=== PATIENT | male | born 1950 | race Caucasian/White ===

== ENCOUNTER 2017-08-15 22:01 | Emergency (ER) | payer MEDICARE ==
[2017-08-15 22:02] VITALS: BMI 27.7
--- NOTE | 2017-08-16 00:53 | C.PDOC ---
History Of Present Illness Patient presents to the ER with a complaint of fever, cough and body aches for the past 36 hours. Patient is able to tolerate PO, denies nausea, vomiting, or diarrhea. Time Seen by Provider: 08/16/17 00:52 Chief Complaint (Nursing): Flu-like Symptoms History Per: Patient History/Exam Limitations: no limitations Onset/Duration Of Symptoms: Days Current Symptoms Are (Timing): Still Present Location Of Pain: Diffuse Myalgias Sick Contacts (Context): None Associated Symptoms: Fever, Cough, Myalgias. denies: Nausea, Vomiting, Diarrhea Ear Symptoms: Bilateral: None Severity: Mild Pain Scale Rating Of: 2 Recent travel outside of the [place]: No Past Medical History Reviewed: Historical Data, Nursing Documentation, Vital Signs Vital Signs: Last Vital Signs Temp 98.1 F 08/16/17 01:53 Pulse 70 08/16/17 01:53 Resp 20 08/16/17 01:53 BP 122/61 08/16/17 01:53 Pulse Ox 100 08/16/17 01:53 - Medical History PMH: HTN, Hypercholesterolemia, Hyperlipidemia - [facility] Procedures CORNEAL TRANSPLANT NOS (07/17/99) EXTRACAP LENS EXTRAC NEC (10/15/99) INSERT LENS AT CATAR EXT (10/15/99) Family History: States: No Known Family Hx - Social History Hx Alcohol Use: No Hx Substance Use: No - Immunization History Hx Tetanus Toxoid Vaccination: No Hx Influenza Vaccination: No Hx Pneumococcal Vaccination: No Review Of Systems Constitutional: Positive for: Fever. Negative for: Chills Respiratory: Positive for: Cough Gastrointestinal: Negative for: Nausea, Vomiting, Diarrhea Musculoskeletal: Positive for: Other (Body aches) Physical Exam - Physical Exam Appears: Non-toxic, No Acute Distress Skin: Warm, Dry Head: Normacephalic Ear(s): Bilateral: Normal Oral Mucosa: Moist Throat: No Erythema, No Exudate Chest: Symmetrical, No Tenderness Cardiovascular: Rhythm Regular Respiratory: No Rales, Rhonchi (Scattered), No Wheezing Gastrointestinal/Abdominal: Soft, No Tenderness Neurological/Psych: Oriented x3 ED Course And Treatment O2 Sat by Pulse Oximetry: 94 (room air) Pulse Ox Interpretation: Normal Progress Note: Tamiflu and zithromax administered. Disposition Counseled Patient/Family Regarding: Studies Performed, Diagnosis, Need For Followup, Rx Given - Disposition Referrals: Alexander Mejia MD [Primary Care Provider] - Disposition: HOME/ ROUTINE Disposition Time: 00:52 Condition: FAIR Additional Instructions: Please return if symptoms recur Prescriptions: Azithromycin [Zithromax Tri-Kuldip] 500 mg PO DAILY #3 tablet Benzonatate [Tessalon Perles] 100 mg PO TID PRN #15 sgl PRN Reason: Cough Oseltamivir Phosphate [Tamiflu] 75 mg PO BID #10 capsule Instructions: Upper Respiratory Infection (ED), Viral Syndrome (ED) Forms: [employer] (Amharic) Print Language: BRUNEIAN - Clinical Impression Clinical Impression: Viral syndrome, URI (upper respiratory infection) - Scribe Statement The provider has reviewed the documentation as recorded by the Scribe Marcus Aldrich All medical record entries made by the Scribe were at my direction and personally dictated by me. I have reviewed the chart and agree that the record accurately reflects my personal performance of the history, physical exam, medical decision making, and the department course for this patient. I have also personally directed, reviewed, and agree with the discharge instructions and disposition.
[2017-08-16 01:55] VITALS: BP 122/61; PULSE 70; RESP 20; TEMP 98.1
[2017-08-16 04:47] VITALS: O2SAT 94
== END 2017-08-16 01:53 | disposition home or self-care (01) ==
LOC: C.ER 22:01 → SUPCPDRO 22:01 → C.ER 08-16 01:53
DX: B34.9 Viral infection, unspecified (principal); J06.9 Acute upper respiratory infection, unspecified

== ENCOUNTER 2017-09-24 00:43 | Emergency (ER) | payer MEDICARE ==
[2017-09-24 00:43] VITALS: BMI 27.7
[2017-09-24 01:04] VITALS: TEMP 99.9
[2017-09-24] MEDS ORDERED: Sodium Chloride 0.9% 1,000 ML IV ONE (01:07)
--- NOTE | 2017-09-24 01:09 | C.PDOC ---
History Of Present Illness 66 y/o male PMHx of prostatic cancer, currently undergoing radiation therapy, presents to ED for complaints of abdominal pain that began this evening 8PM. Patient states pain does not radiate to back but radiates to the lower chest. Patient also expresses concern about blood pressure being elevated and states he has a headache. He also reports intermittent vague chest discomfort. Denies nausea, vomiting, diarrhea, fever, complaints about blood pressure medications, prior Hx of diverticulitis, or cholecystitis. Time Seen by Provider: 09/24/17 00:50 Chief Complaint (Nursing): Abdominal Pain History Per: Patient History/Exam Limitations: no limitations Onset/Duration Of Symptoms: Hrs Current Symptoms Are (Timing): Still Present Radiation Of Pain To:: Chest Quality Of Discomfort: "Pain" Associated Symptoms: denies: Fever, Chills, Nausea, Vomiting, Diarrhea, Urinary Symptoms Exacerbating Factors: None Alleviating Factors: None Recent travel outside of the [place]: No Past Medical History Reviewed: Historical Data, Nursing Documentation, Vital Signs Vital Signs: Last Vital Signs Temp 99.9 F H 09/24/17 00:55 Pulse 80 09/24/17 04:25 Resp 14 09/24/17 04:25 BP 140/80 09/24/17 04:25 Pulse Ox 97 09/24/17 04:25 - Medical History PMH: HTN, Hypercholesterolemia, Hyperlipidemia - [facility] Procedures CORNEAL TRANSPLANT NOS (07/17/99) EXTRACAP LENS EXTRAC NEC (10/15/99) INSERT LENS AT CATAR EXT (10/15/99) Family History: States: No Known Family Hx - Social History Hx Alcohol Use: No Hx Substance Use: No - Immunization History Hx Tetanus Toxoid Vaccination: No Hx Influenza Vaccination: No Hx Pneumococcal Vaccination: No Review Of Systems Constitutional: Negative for: Fever, Chills Cardiovascular: Positive for: Other (vague intermittent chest discomfort). Negative for: Palpitations Respiratory: Negative for: Cough, Shortness of Breath Gastrointestinal: Positive for: Abdominal Pain Neurological: Positive for: Headache. Negative for: Weakness, Numbness Physical Exam - Physical Exam Appears: Non-toxic, Other (Frial; appears older than stated age ) Skin: Warm, Dry, Pale Head: Atraumatic, Normacephalic Eye(s): bilateral: Normal Inspection Ear(s): Bilateral: Normal Nose: Normal, No Discharge, No Deformity Oral Mucosa: Moist Neck: Supple Chest: Symmetrical, No Tenderness Cardiovascular: Rhythm Regular Respiratory: No Decreased Breath Sounds, No Rales, No Rhonchi, No Wheezing Gastrointestinal/Abdominal: Bowel Sounds (active), Soft, Tenderness (localized to LLQ), Guarding, No Rebound Extremity: Normal ROM, No Tenderness, No Pedal Edema, No Deformity Neurological/Psych: Oriented x3, Normal Speech, Normal Cognition, Normal Cranial Nerves, Normal Motor, Normal Sensation, Other (no focal deficits) ED Course And Treatment - Laboratory Results Result Diagrams: 09/24/17 01:46 09/24/17 01:46 O2 Sat by Pulse Oximetry: 96 (RA) Pulse Ox Interpretation: Normal - CT Scan/US CT Abdomen & Pelvis Other Rad Studies (CT/US): Read By Radiologist, Radiology Report Reviewed CT/US Interpretation: EXAM: CT Abdomen and Pelvis With Intravenous Contrast. EXAM DATE/TIME: 09/24/2017 1:07 AM. CLINICAL HISTORY: 66 years old, male; Pain ; Abdominal pain; Additional info: Abd pain. TECHNIQUE: Axial computed tomography images of the abdomen and pelvis with intravenous contrast. All CT. scans at this facility use one or more dose reduction techniques, viz.: automated exposure control;. ma/kV adjustment per patient size (including targeted exams where dose is matched to indication; i.e. head); or iterative reconstruction technique. Coronal and sagittal reformatted images [facility]. [facility]. Final Radiology Report [id number]. Name: JESSICA HANNAH Age: 66Years M Date: 09/24/2017. SSN: [id number] : 1950. Study: CT ABDOMEN/PELVIS W Requesting Physician: Soco Mendez. Images: 670. Addl Studies: Provided Clinical History: abd pain. CONFIDENTIALITY STATEMENT. This transmission is confidential and is intended to be a privileged communication. It is intended only for the use of the addressee. Access to this. message by anyone else is unauthorized. If you are not the intended recipient, any disclosure, copying, distribution or any action taken, or omitted to. be taken in reliance on it is prohibited and may be unlawful. If you received this communication in error, please notify us by telephone, so that return. of this document to us can be arranged. Page 2 of 3. Patient motion. The liver is normal. The spleen is normal. The pancreas is normal. No gallstones. Trace bilateral perinephric stranding. Correlation with urinalysis if clinically indicated. Colonic diverticulosis is present. A normal appendix is identified axial images 121 through 130 coronal images 44 through 56. The prostate is enlarged. Probable scrotal hydroceles. IMPRESSION: Elevation of the left hemidiaphragm with adjacent left lower lung atelectasis. Prominent prostate.Recommend correlation with PSA level. [facility]. [facility] [place]. Final Radiology Report [id number]. Name: JESSICA HANNAH Age: 66Years M Date: 09/24/2017. SSN: [id number] : 1950. Study: CT ABDOMEN/PELVIS W Requesting Physician: Soco Mendez. Images: 670. Addl Studies: Provided Clinical History: abd pain. CONFIDENTIALITY STATEMENT. This transmission is confidential and is intended to be a privileged communication. It is intended only for the use of the addressee. Access to this. message by anyone else is unauthorized. If you are not the intended recipient, any disclosure, copying, distribution or any action taken, or omitted to. be taken in reliance on it is prohibited and may be unlawful. If you received this communication in error, please notify us by telephone, so that return. of this document to us can be arranged. Page 3 of 3. Thank you for allowing us to participate in the care of your patient. Dictated and Authenticated by: Corrine Patel MD. 09/24/2017 4:01 AM Eastern Time ([place] & [place]) Medical Decision Making Medical Decision Making: Ordered EKG, CT abdomen & Pelvis with IV contrast only , blood work, blood and urine culture and urinalysis. Administered Morphine and IV fluids. Impression: - Patient with localizing LLQ pain - Lower in temperature - Consider diverticulitis, cholecystitis, and abscess. - Will reassess EKG Results: - Normal sinus rhythm at 89 bpm - Ocasional PVC's - RBBB - When compared to EKG from 02/26/2016: no acute changes Disposition - Disposition Referrals: [facility] [Outside] Disposition: HOME/ ROUTINE Disposition Time: 07:15 Condition: GOOD Prescriptions: Ciprofloxacin HCl [Cipro] 500 mg PO BID #14 tablet Instructions: Urinary Tract Infection, Adult (DC) Forms: [employer] (Croatian) Print Language: COMORAN - Clinical Impression Clinical Impression: Abdominal pain, UTI (urinary tract infection) - Scribe Statement The provider has reviewed the documentation as recorded by the Scribjaren Kaminski All medical record entries made by the Dominiqueibjaren were at my direction and personally dictated by me. I have reviewed the chart and agree that the record accurately reflects my personal performance of the history, physical exam, medical decision making, and the department course for this patient. I have also personally directed, reviewed, and agree with the discharge instructions and disposition.
[2017-09-24] MEDS ORDERED: Morphine 4 MG/ML VIAL ONE (01:20)
[2017-09-24] MEDS ORDERED: Sodium Chloride 0.9% 1,000 ML ONE (01:20)
[2017-09-24 01:54] LABS: BASO % 0.4 % (0.0-2.0); EOS % 0.5 % (0.0-4.0); HEMOGLOBIN 14.2 g/dL (12.0-18.0); LYMPH # 0.4 K/uL (1.0-4.3); LYMPH % 5.5 % (20.0-40.0); MEAN CELL VOLUME 72.1 fL (80.0-94.0); MEAN CORPUSCULAR HEMOGLOBIN 24.6 pg (27.0-31.0); MEAN PLATELET VOLUME 8.6 fL (7.2-11.7); MONO # 0.5 K/uL (0.0-0.8); MONO % 6.9 % (0.0-10.0); NEUT # 6.2 K/uL (1.8-7.0); NEUT % 86.7 % (50.0-75.0); NRBC % 0.1 % (0.0-2.0); PLATELET COUNT 119 K/uL (130-400); RBC 5.77 Mil/uL (4.40-5.90); RED CELL DISTRIBUTION WIDTH 14.9 % (11.5-14.5); WHITE BLOOD COUNT 7.2 K/uL (4.8-10.8)
[2017-09-24 02:01] LABS: ALB/GLOB RATIO 1.2 (1.0-2.1); ALBUMIN 4.2 g/dL (3.5-5.0); ALT/SGPT 44 U/L (21-72); AST/SGOT 37 U/L (17-59); BLOOD UREA NITROGEN 13 mg/dL (9-20); CALCIUM 8.9 mg/dl (8.6-10.4); GFR AFRICAN-AMERICAN > 60; GFR NON-AFRICAN AMERICAN > 60; LIPASE 94 U/L (23-300)
[2017-09-24 02:04] LABS: URINE BACTERIA FEW (<OCC); URINE BILIRUBIN NEGATIVE (NEGATIVE); URINE BLOOD NEGATIVE (NEGATIVE); URINE CLARITY Clear (Clear); URINE COLOR Straw (YELLOW); URINE GLUCOSE (UA) NORMAL (Normal); URINE LEUKOCYTE ESTERASE TRACE Leu/uL (Negative); URINE PROTEIN NEGATIVE (NEGATIVE); URINE UROBILINOGEN NORMAL mg/dL (0.2-1.0)
[2017-09-24] MEDS ORDERED: Iodixanol 320 MG/ML 100 ML BOTTLE IV ONE (02:21)
[2017-09-24 02:35] LABS: BANDS 3 % (0-2); LYMPHOCYTE 4 % (20-40); MONOCYTE 3 % (0-10); NEUTROPHIL 89 % (50-75); PLATELET ESTIMATE SLIGHTLY DECREASED (NORMAL); REACTIVE LYMPHOCYTES 1 % (0-0); TOTAL CELLS COUNTED 100
--- NOTE | 2017-09-24 04:01 | CT ---
EXAM: CT Abdomen and Pelvis With Intravenous Contrast EXAM DATE/TIME: 09/24/2017 1:07 AM CLINICAL HISTORY: 66 years old, male; Pain; Abdominal pain; Additional info: Abd pain TECHNIQUE: Axial computed tomography images of the abdomen and pelvis with intravenous contrast. All CT scans at this facility use one or more dose reduction techniques, viz.: automated exposure control; ma/kV adjustment per patient size (including targeted exams where dose is matched to indication; i.e. head); or iterative reconstruction technique. Coronal and sagittal reformatted images were created and reviewed. CONTRAST: 100 mL of 100ml visipaque administered intravenously. COMPARISON: No relevant prior studies available. FINDINGS: Elevation of the left hemidiaphragm. Left lower lung consolidation. Patient motion. The liver is normal. The spleen is normal. The pancreas is normal. No gallstones. Trace bilateral perinephric stranding. Correlation with urinalysis if clinically indicated. Colonic diverticulosis is present. A normal appendix is identified axial images 121 through 130 coronal images 44 through 56. The prostate is enlarged. Probable scrotal hydroceles. IMPRESSION: Elevation of the left hemidiaphragm with adjacent left lower lung atelectasis. Prominent prostate.Recommend correlation with PSA level.
[2017-09-24 04:28] VITALS: BP 140/80; PULSE 80; RESP 14
[2017-09-24 07:16] VITALS: O2SAT 96
== END 2017-09-24 04:27 | disposition home or self-care (01) ==
LOC: C.ER 00:43
DX: N39.0 Urinary tract infection, site not specified (principal); R10.32 Left lower quadrant pain
CPT/HCPCS: 74177; 80053; 81001; 83605; 83690; 84484; 85025; 87040; 87086; 96361; 96374; 99283; J2270; J7040; Q9967